=== PATIENT | female | born 1990 | race African-American/Black ===

== ENCOUNTER 2018-08-17 00:04 | Emergency (ER) | payer MEDICAID ==
[~2018-08-17] VITALS: Ht 172.7 cm; Wt 69.2 kg
[2018-08-17] MEDS ORDERED: METHYLPREDNISOLONE SOD SUCC 125 MG/2 ML VIAL IV STA (00:20)
[2018-08-17] MEDS ORDERED: ALBUTEROL (0.083%) 2.5MG/3ML NEB HHN STA (00:20)
[2018-08-17] MEDS ORDERED: IPRATROPIUM BROMIDE (0.02%) 0.5MG/2.5ML NEB HHN STA (00:20)
[2018-08-17] MEDS ORDERED: MAGNESIUM 2 G PREMIX 50 ML IV ONE (00:30)
[2018-08-17 01:43] VITALS: BP 124/77
== END 2018-08-17 01:53 | disposition home or self-care (01) ==
LOC: ER 00:04
DX: J45.901 Unspecified asthma with (acute) exacerbation (principal); F17.290 Nicotine dependence, other tobacco product, uncomplicated
CPT/HCPCS: 94640; 96365; 96375; 99283; 99406; J2930; J3475; J7611